=== PATIENT | male | born 1955 | race Caucasian/White ===

== ENCOUNTER 2016-08-23 12:48 | Emergency (ER) | payer OTHER ==
[~2016-08-23] VITALS: Ht 175.3 cm; Wt 102.1 kg
[2016-08-23 12:56] VITALS: BP 123/76
--- NOTE | 2016-08-23 13:21 | ED GENERAL ADULT ---
History of Present Illness General Chief Complaint: Male Genitourinary Problems Stated Complaint: RIGHT TESTICAL PAIN Source: patient Exam Limitations: no limitations Vital Signs & Intake/Output Vital Signs & Intake/Output Vital Signs Date Time Temp Pulse Resp B/P Pulse O2 O2 Flow FiO2 Ox Delivery Rate 08/23 1256 98.0 90 20 123/76 98 Room Air ED Intake and Output 08/24 0000 08/23 1200 Intake Total Output Total Balance Patient 225 lb Weight Allergies Coded Allergies: NO KNOWN ALLERGIES (05/21/13) Reconcile Medications Doxycycline Hyclate (Vibramycin) 100 MG CAPSULE 1 CAP PO BID EPIDIDYMITIS Oxycodone HCl/Acetaminophen (Percocet 5-325 MG Tablet) 5 MG-325 MG TABLET 1 TAB PO BID PRN PAIN Triage Note: PT TO ED C/O RIGHT TESTICLE PAIN X 5 DAYS. DENIES INJURY. DENIES S/S. PT ALSO C/O SCIATICA PAIN X 6 WEEKS. Triage Nurses Notes Reviewed? yes Onset: Abrupt Duration: day(s): Timing: recent history HPI: 08/23/16 3 PM 64-year-old man presents to the emergency department for several days (5) of right sided testicle pain. The patient states that the onset of the symptoms was abrupt, and he subsequently developed significant and severe right sided testicle pain. The duration has been approximately 4 -5 days, the severity is significant as his symptoms required her to come to the emergency department for care. He denies any dysuria fever or other complaints. There is no trauma. He does also admit to an exacerbation of his sciatic back pain which she had for weeks. He has a past medical history of diabetes and seizure disorder. Physical examination he has bilateral cremasterics reflexes. The abdomen is soft and nontender. I do not appreciate any hernias. He does have isolated point tenderness at or about the right epididymis. Ultrasound reveals no acute vascular abnormalities. He does have diminished vascular flow bilaterally. Assessment and plan: right-sided scrotal pain suspect epididymitis Past History Travel History Traveled to [place] past 21 day No Medical History Any Pertinent Medical History? see below for history Musculoskeletal: sciatica Surgical History Surgical History: non-contributory Psychosocial History What is your primary language [place] Tobacco Use: Never used ETOH Use: denies use Illicit Drug Use: denies illicit drug use Family History Hx Contributory? No Review of Systems Review of Systems Constitutional: Denies: fever. EENTM: Reports: no symptoms. Respiratory: Reports: no symptoms. Cardiovascular: Reports: no symptoms. GI: Denies: abdominal pain. Genitourinary: Reports: see HPI. Musculoskeletal: Reports: back pain. Skin: Denies: rash. Neurological/Psychological: Reports: no symptoms. Hematologic/Endocrine: Reports: no symptoms. Physical Exam Physical Exam General Appearance: well developed/nourished, alert, awake, anxious, mild distress Head: atraumatic, normal appearance Eyes: Bilateral: normal appearance, PERRL, EOMI. Ears, Nose, Throat: normal ENT inspection Neck: normal inspection Respiratory: no respiratory distress Cardiovascular: regular rate/rhythm Gastrointestinal: soft, non-tender Back: normal range of motion Extremities: normal inspection Neurologic/Psych: no motor/sensory deficits, awake, alert, oriented x 3 Skin: intact, normal color, warm/dry Comments: exam No scrotal edema Bilateral cremasterics reflex is No ulcerations or penile discharge No hernia Minimal point tenderness and the specific location within the right testicle Core Measures ACS in differential dx? No CVA/TIA Diagnosis: No Severe Sepsis Present: No Septic Shock Present: No Progress Differential Diagnoses I considered the following diagnoses in my evaluation of the patient: [ Testicular torsion, hydrocele, hernia, ureteritis, syphilis, cellulitis, Alfa's gangrene, epididymitis, renal colic] Plan of Care: Orders Procedure Date/time Status CULTURE,URINE 08/23 1308 Active URINALYSIS 08/23 1308 Complete Laboratory Tests 08/23/16 1446: Urine Color YEL, Urine Clarity CLEAR, Urine pH 6.0, Ur Specific Dixon 1.010, Urine Protein NEG, Urine Ketones NEG, Urine Nitrite NEG, Urine Bilirubin NEG, Urine Urobilinogen 0.2, Ur Leukocyte Esterase NEG, Ur Microscopic EXAM NOT REQUIRED, Urine Hemoglobin NEG, Urine Glucose NEG Microbiology 08/23 1446 URINE ROUT: Urine Culture - RECD Urinalysis is negative Testicular ultrasound shows bilateral flow to both testicles The specific results of the ultrasound were reviewed with the patient He is instructed to follow-up with urologist. He was told to call tomorrow for an appointment. He was told to return if the pain is worse. He was given Vibramycin for epididymitis, Percocet only if needed for pain. (CHRISTOPHER FRAZIER DO) Initial ED EKG: none Departure Departure Disposition: HOME OR SELF CARE Condition: Stable Clinical Impression Primary Impression: Testicle pain Referrals: PRETTY FATIMA MD (PCP/Family) Departure Forms: Customer Survey General Discharge Information Prescriptions: Current Visit Scripts Doxycycline Hyclate (Vibramycin) 1 CAP PO BID #20 CAP Oxycodone HCl/Acetaminophen (Percocet 5-325 MG Tablet) 1 TAB PO BID PRN PAIN #10 TAB Comments PATIENT: JCARLOS ZEPEDA PRESENT AGE: 60 PATIENT ACCOUNT NO: [id number] : 53 LOCATION: [facility] [place] ORDERING PHYSICIAN: CHRISTOPHER FRAZIER DO SERVICE DATE: 08/23/16 EXAM TYPE: US - US-TESTICULAR EXAMINATION: US SCROTUM CLINICAL INFORMATION: Testicular pain. Rule out torsion. COMPARISON: None. TECHNIQUE: A sonogram of the scrotum was performed assessing london-scale appearance and color Doppler flow. FINDINGS: RIGHT: Right testicle measures 3.4 x 2.2 x 3.2 cm, volume 17 mL. Parenchymal echotexture is normal. No focal testicular parenchymal lesions are visualized. Symmetric intratesticular flow is visualized. Arterial and venous waveforms are identified. Right epididymal head is normal in size. No right hydrocele or varicocele is seen. LEFT: Left testicle measures 4 x 2.3 x 2.9 cm, volume 18.9 mL. Parenchymal echotexture is normal. No focal testicular parenchymal lesions are visualized. Symmetric intratesticular flow is visualized. Arterial and venous waveforms are identified, though flow appears symmetrically low in both testes (favored to be technical). Left epididymal head is normal in size. No left hydrocele or varicocele is seen. IMPRESSION: No acute findings are identified in the scrotum. Venous and arterial blood flow is identified in both testicles. The bilaterally diminished blood flow in the testicles is favored to be either technical in nature or due to systemic vascular abnormalities. DICTATED BY: ALICIA MARINELLI MD DATE/TIME DICTATED:08/23/161434 VINEYARDIST:MALA DATE/TIME TRANSCRIBED:08/23/161434 CONFIDENTIAL, DO NOT COPY WITHOUT APPROPRIATE AUTHORIZATION. <Electronically signed in Other Vendor System> SIGNED BY: ALICIA MARINELLI MD 08/23/16 1069 Critical Care Note Critical Care Note Critical Care Time: non-applicable
--- NOTE | 2016-08-23 14:44 | ULTRASOUND REPORT ---
EXAMINATION: US SCROTUM CLINICAL INFORMATION: Testicular pain. Rule out torsion. COMPARISON: None. TECHNIQUE: A sonogram of the scrotum was performed assessing london-scale appearance and color Doppler flow. FINDINGS: RIGHT: Right testicle measures 3.4 x 2.2 x 3.2 cm, volume 17 mL. Parenchymal echotexture is normal. No focal testicular parenchymal lesions are visualized. Symmetric intratesticular flow is visualized. Arterial and venous waveforms are identified. Right epididymal head is normal in size. No right hydrocele or varicocele is seen. LEFT: Left testicle measures 4 x 2.3 x 2.9 cm, volume 18.9 mL. Parenchymal echotexture is normal. No focal testicular parenchymal lesions are visualized. Symmetric intratesticular flow is visualized. Arterial and venous waveforms are identified, though flow appears symmetrically low in both testes (favored to be technical). Left epididymal head is normal in size. No left hydrocele or varicocele is seen. IMPRESSION: No acute findings are identified in the scrotum. Venous and arterial blood flow is identified in both testicles. The bilaterally diminished blood flow in the testicles is favored to be either technical in nature or due to systemic vascular abnormalities.
[2016-08-23] MEDS ORDERED: VIBRAMYCIN100 MG PO (14:55)
[2016-08-23] MEDS ORDERED: PERCOCET 5-3251 EACH PO (14:56)
== END 2016-08-23 15:16 ==
LOC: ERH 12:48
DX: N50.811 Right testicular pain (principal)
CPT/HCPCS: 81003; 87086